=== PATIENT | male | born 1980 | race Caucasian/White ===

== ENCOUNTER → 2018-03-14 | Outpatient (CLI) | payer BC ==
[~2018-03-14] VITALS: Ht 190.5 cm; Wt 111.6 kg
[2018-03-14 13:20] VITALS: BP 136/81; PULSE 71
[2018-03-14 14:00] VITALS: BP 137/83; PULSE 73
[2018-03-14 14:15] VITALS: BP 128/85; PULSE 78
[2018-03-14 14:30] VITALS: BP 134/81; PULSE 72
== END ==
LOC: COL.RAD 07:30
DX: G62.9 Polyneuropathy, unspecified (principal); J34.89 Other specified disorders of nose and nasal sinuses; R07.9 Chest pain, unspecified
CPT/HCPCS: J2704